=== PATIENT | female | born 1995 | race Two or more races ===

== ENCOUNTER 2024-09-22 22:54 | Emergency (ER) | payer OTHER ==
[~2024-09-22] VITALS: Ht 175.3 cm; Wt 90.7 kg
[2024-09-22] MEDS ORDERED: BEYAZ 28 TABLE1 EACH (23:20)
[2024-09-23] MEDS ORDERED: CORTISPORIN-TC10 M1 OT (01:26)
== END 2024-09-23 01:55 ==
LOC: ER 22:55
DX: T16.1XXA Foreign body in right ear, initial encounter (principal)